=== PATIENT | female | born 1995 | race American Indian/Alaskan Native ===

== ENCOUNTER 2021-06-25 19:51 | Emergency (ER) | payer BC ==
--- NOTE | 2021-06-25 20:41 | Emergency Department Report ---
ED General Adult HPI - General Chief complaint: Skin/Abscess/Foreign Body Stated complaint: ABSCESS Source: patient Mode of arrival: Ambulatory Limitations: No Limitations - History of Present Illness Initial comments: Patient is a nulliparous 25-year-old -[place] female with chronic recurrent Bartholin gland abscesses presents to the ED with complaint of acute onset persistent severe painful swollen left Bartholin's gland with thick purulent discharge for last 2 days. Patient states that the pain is the pain got worse prior to arrival in the ED. Patient denies dizziness, syncope, fever, chills, dysuria, vaginal bleeding, vaginal discharge, low back pain, sore throat, lightheadedness or cough MD Complaint: Painful swollen left Bartholin's gland with thick purulent discharge -: Sudden, days(s) (2) Location: genitals (left Bartholin's gland swelling and pain) Radiation: non-radiation Quality: aching, sharp Consistency: constant Improves with: none Worsens with: none Associated Symptoms: denies other symptoms, rash (Swollen, painful left Bartholin's gland with thick purulent discharge). denies: confusion, chest pain, cough, diaphoresis, fever/chills, headaches, loss of appetite, malaise, nausea/vomiting, seizure, shortness of breath, syncope, weakness Treatments Prior to Arrival: none - Related Data Previous Rx's Medication Instructions Recorded Last Taken Type Clindamycin [Clindamycin CAP] 300 mg PO Q8H #30 cap 06/25/21 Unknown Rx Ibuprofen [Motrin] 600 mg PO Q8H PRN #30 tablet 06/25/21 Unknown Rx Sulfamethoxazole/Trimethoprim 1 each PO Q12H #20 06/25/21 Unknown Rx [Bactrim DS TAB] ED Review of Systems ROS: Stated complaint: ABSCESS Other details as noted in HPI Constitutional: denies: chills, fever Eyes: denies: eye pain, eye discharge, vision change ENT: denies: ear pain, throat pain Respiratory: denies: cough, shortness of breath, wheezing Cardiovascular: denies: chest pain, palpitations Endocrine: no symptoms reported Gastrointestinal: denies: abdominal pain, nausea, diarrhea Genitourinary: other (swollen painful left Bartholin's gland with thick purulent discharge). denies: urgency, dysuria, frequency, hematuria, discharge, dyspareunia Musculoskeletal: denies: back pain, joint swelling, arthralgia Skin: rash (swollen painful draining left Bartholin's gland). denies: lesions, change in color, change in hair/nails, pruritus Neurological: denies: headache, weakness, paresthesias Psychiatric: denies: anxiety, depression Hematological/Lymphatic: denies: easy bleeding, easy bruising ED Past Medical Hx - Past Medical History Previous Medical History?: No - Surgical History Past Surgical History?: Yes - Medications Home Medications: Home Medications Medication Instructions Recorded Confirmed Last Taken Type Clindamycin [Clindamycin CAP] 300 mg PO Q8H #30 cap 06/25/21 Unknown Rx Ibuprofen [Motrin] 600 mg PO Q8H PRN #30 tablet 06/25/21 Unknown Rx Sulfamethoxazole/Trimethoprim 1 each PO Q12H #20 06/25/21 Unknown Rx [Bactrim DS TAB] ED Physical Exam - General Limitations: No Limitations General appearance: alert, in no apparent distress - Head Head exam: Present: atraumatic, normocephalic, normal inspection - Eye Eye exam: Present: normal appearance, PERRL, EOMI Pupils: Present: normal accommodation - ENT ENT exam: Present: normal exam, normal orophraynx, mucous membranes moist, TM's normal bilaterally, normal external ear exam - Neck Neck exam: Present: normal inspection, full ROM - Respiratory Respiratory exam: Present: normal lung sounds bilaterally. Absent: respiratory distress, wheezes, rales, rhonchi, stridor, chest wall tenderness, accessory muscle use, decreased breath sounds, prolonged expiratory - Cardiovascular Cardiovascular Exam: Present: regular rate, normal rhythm, normal heart sounds. Absent: systolic murmur, diastolic murmur, rubs, gallop - GI/Abdominal GI/Abdominal exam: Present: soft, normal bowel sounds. Absent: tenderness, guarding, rebound, hyperactive bowel sounds, hypoactive bowel sounds, organomegaly, mass, bruit - Bi-manual exam: Present: other (Pelvic exam deferred, patient requested to opt out ) - Extremities Exam Extremities exam: Present: normal inspection, full ROM, normal capillary refill - Back Exam Back exam: Present: normal inspection, full ROM. Absent: tenderness, CVA tenderness (R), CVA tenderness (L), muscle spasm, vertebral tenderness - Neurological Exam Neurological exam: Present: alert, oriented X3, CN II-XII intact, normal gait, reflexes normal - Psychiatric Psychiatric exam: Present: normal affect, normal mood - Skin Skin exam: Present: warm, dry, intact, normal color, rash (swollen tender left Bartholin's gland with urulent discharge) ED Medical Decision Making - Differential Diagnosis Bartholin's Gland Abscess; Cellulitis; cutaneous abscess; Critical care attestation.: If time is entered above; I have spent that time in minutes in the direct care of this critically ill patient, excluding procedure time. ED Disposition Clinical Impression: Bartholin's gland abscess, Cellulitis of female genitalia Disposition: HOME / SELF CARE / HOMELESS Is pt being admited?: No Does the pt Need Aspirin: No Condition: Stable Instructions: Bartholin's Cyst, [id number], Cellulitis, Adult, [id number], Skin Abscess, [id number] Additional Instructions: Take medication with food, drink plenty of fluids and follow-up with your primary care physician in 7 to 10 days for reevaluation. Return to the ED immediately if symptoms get worse. Prescriptions: Sulfamethoxazole/Trimethoprim [Bactrim DS TAB] 1 each PO Q12H #20 Clindamycin [Clindamycin CAP] 300 mg PO Q8H #30 cap Ibuprofen [Motrin] 600 mg PO Q8H PRN #30 tablet PRN Reason: Pain Referrals: [facility] [Provider Group] - 7-10 days Time of Disposition: 20:48 Print Language: ARABIC
[2021-06-25 20:43] VITALS: BP 121/87
[2021-06-25] MEDS ORDERED: CLINDAMYCIN 300 MG CAP PO ONE (22:32)
[2021-06-25] MEDS ORDERED: SULFAMETHOXAZOLE/TRIMETHOPRIM 800/160MG DS TAB PO ONE (22:32)
[2021-06-25] MEDS ORDERED: ONDANSETRON 4 MG ODT TAB PO ONE (22:32)
[2021-06-25] MEDS ORDERED: IBUPROFEN 600 MG TAB PO ONE (22:33)
== END 2021-06-25 22:01 | disposition home or self-care (01) ==
LOC: ED 19:51
DX: N75.1 Abscess of Bartholin's gland (principal); N76.4 Abscess of vulva
CPT/HCPCS: 99282; J3490; Q0162